=== PATIENT | male | born 1985 | race Caucasian/White ===

== ENCOUNTER 2017-01-03 23:23 | Emergency (ER) | payer OTHER ==
[~2017-01-03] VITALS: Ht 182.9 cm; Wt 80.7 kg
--- NOTE | ~2017-01-03 | CR230 ---
[facility] A Service of [facility] RADIOLOGY TEXT RESULTS PATIENT: HOLLIE PEREZ LOCATION: SED : 85 UNIT #: [id number] AGE: [address]: Campbell Gaxiola MD SEX: M ORDER DR: [id number] [place] [id number] E MR#: [id number] Acc #: [id number] NAME: HOLLIE PEREZ : 1985 SEX: M STUDY DATE/TIME: 01/03/2017 23:51 UNIT: SED ROOM: STUDY DESCRIPTION: CR Shoulder Min 2 View Rt Attending Physician: Campbell Gaxiola M.D. Ordering Physician: Campbell Gaxiola M.D. Primary Care Physician: Ambar Perez M.D. MEDICAL IMAGING REPORT This report is preliminary unless electronic signature is present. EXAM Right shoulder 01/03 23:51 INDICATION Shoulder pain tonight after lifting heavy object. FINDINGS Three views of the right shoulder were obtained. There is no fracture or dislocation. There is no AC joint separation. IMPRESSION Negative right shoulder. Dictated by... Ford Webb Jr., M.D. THIS IS AN ELECTRONICALLY VERIFIED REPORT Ford Webb Jr., M.D. at 01/05/2017 12:51 AM FREDY/nadia TD: 01/04/2017 07:01 JOB #: [id number] MEDICAL IMAGING REPORT Page 1 of 1
[~2017-01-03 23:23] MED LIST: ADVIL200 M1 PO; ALBUTEROL17 GM INH; AMOX/CLAV PO; BACLOFEN10 MG PO; BENZONATATE PO; BREO ELLIPTA I1 EACH IH; CLEOCIN HCL300 M1 PO; FLEXERIL; LEXAPRO PO; NAPROSYN-EC500 MG PO; NEURONTIN250 MG/5 M; NEURONTIN300 MG PO; PREDNISONE PO; TYLENOL #3 PO; VIBRAMYCIN100 M1 PO; VISTARIL PO; ZANAFLEX4 M1 PO
[2017-01-03] MEDS ORDERED: NEURONTIN300 MG PO (23:31)
== END 2017-01-04 00:42 | disposition home or self-care (01) ==
LOC: SED 23:23
DX: S43.401A Unspecified sprain of right shoulder joint, initial encounter (principal); F31.9 Bipolar disorder, unspecified; Z88.5 Allergy status to narcotic agent; Z79.899 Other long term (current) drug therapy; X58.XXXA Exposure to other specified factors, initial encounter
CPT/HCPCS: 73030; 99283

== ENCOUNTER 2017-01-08 12:27 | Emergency (ER) | payer OTHER ==
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
[2017-01-08 13:26] LABS: URINE APPEARANCE CLEAR; URINE BILIRUBIN POS (NEG); URINE BLOOD TRACE-INTACT (NEG); URINE COLOR YELLOW; URINE GLUCOSE NEG (NORM); URINE KETONE TRACE (NEG); URINE LEUKOCYTE ESTERASE NEG (NEG); URINE NITRATE NEG (NEG); URINE PROTEIN 1+ (NEG); URINE SOURCE CLEAN CATCH; URINE SPECIFIC GRAVITY 1.025 (1.003-1.035); URINE UROBILINOGEN 0.2 MG/DL (NORM)
[2017-01-08 13:28] LABS: BASOPHIL# 0.1 X10e3 (0-0.3); BASOPHIL% 0.7 % (0-2.5); EOSINOPHIL# 0.3 X10e3 (0-0.7); EOSINOPHIL% 2.3 % (0.0-7.0); HEMATOCRIT 45.9 % (38.0-50.0); HEMOGLOBIN 15.3 gm/dL (13.0-16.0); LYMPHOCYTE# 2.5 X10e3 (1.0-3.5); LYMPHOCYTE% 20.3 % (17.0-45.0); MEAN CELL VOLUME 88.5 FL (83-96); MEAN CORPUSCULAR HEMOGLOBIN 29.5 PG (28-34); MEAN CORPUSCULAR HGB CONC 33.3 g/dL (30-36); MEAN PLATELET VOLUME 7.7 FL (6.5-11.5); MICRO INDICATED? YES; MONOCYTE# 1.5 X10e3 (0-1.0); MONOCYTE% 12.3 % (3.0-12.0); NEUTROPHIL# 7.9 X10e3 (1.5-7.1); NEUTROPHIL% 64.4 % (40-75); PLATELET COUNT 245 X10e3 (140-420); RED BLOOD COUNT 5.18 X10e (3.90-5.60); RED CELL DISTRIBUTION WIDTH 14.3 % (11.0-15.5); WHITE BLOOD COUNT 12.2 X10e3 (4.0-10.5)
[2017-01-08 13:29] LABS: DIFF IND NO
[2017-01-08 13:33] LABS: CULTURE INDICATED? NO; URINE AMORPHOUS SEDIMENT AMORP URATES; URINE BACTERIA NEG (NEG); URINE MUCUS PRESENT; URINE RBC 0-2 /[HPF] (0-2); URINE SQUAMOUS EPITHELIAL CELL FEW /[HPF]; URINE WBC 0-2 /[HPF] (0-5)
[2017-01-08 13:44] LABS: ALBUMIN SERUM 4.8 g/dL (3.5-5.0); BILIRUBIN, DIRECT 0.1 mg/dL (0.0-0.2); BILIRUBIN,INDIRECT 0.6 mg/dL (0.0-0.9); BILIRUBIN,TOTAL 0.7 mg/dL (0.2-2.0); CALCIUM SERUM 8.6 mg/dL (8.4-10.2); CREATININE SERUM 3.9 mg/dL (0.6-1.4); GLOM FILT RATE Estimated 19.3 mL/min (>60); POTASSIUM 3.7 mmol/L (3.5-5.1); PROTEIN TOTAL SERUM 7.9 g/dL (6.0-8.3)
== END 2017-01-08 18:56 | disposition home or self-care (01) ==
LOC: SED 12:27 → CEDOF 16:29 → SED 16:29 → CEDOF 18:56
PROVIDERS: Emergency Medicine
DX: S00.83XA Contusion of other part of head, initial encounter (principal); N19 Unspecified kidney failure; M62.82 Rhabdomyolysis; Y04.0XXA Assault by unarmed brawl or fight, initial encounter; Y92.410 Unspecified street and highway as the place of occurrence of the external cause; F17.200 Nicotine dependence, unspecified, uncomplicated
CPT/HCPCS: 36415; 70450; 70486; 71101; 72072; 72100; 72125; 74176; 80048; 80076; 81003; 82550; 85025; 96361; 96374; 96376; 99284; J2270

== ENCOUNTER 2017-01-11 12:05 | Emergency (ER) | payer OTHER ==
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
[2017-01-11 12:45] LABS: BASOPHIL% 0.6 % (0-2.5); EOSINOPHIL# 0.1 X10e3 (0-0.7); EOSINOPHIL% 1.6 % (0.0-7.0); HEMATOCRIT 43.5 % (38.0-50.0); HEMOGLOBIN 14.7 gm/dL (13.0-16.0); LYMPHOCYTE# 1.3 X10e3 (1.0-3.5); LYMPHOCYTE% 14.9 % (17.0-45.0); MEAN CELL VOLUME 88.4 FL (83-96); MEAN CORPUSCULAR HEMOGLOBIN 29.8 PG (28-34); MEAN CORPUSCULAR HGB CONC 33.7 g/dL (30-36); MEAN PLATELET VOLUME 7.7 FL (6.5-11.5); MONOCYTE# 0.5 X10e3 (0-1.0); MONOCYTE% 6.3 % (3.0-12.0); NEUTROPHIL# 6.5 X10e3 (1.5-7.1); NEUTROPHIL% 76.6 % (40-75); PLATELET COUNT 241 X10e3 (140-420); RED BLOOD COUNT 4.92 X10e (3.90-5.60); WHITE BLOOD COUNT 8.5 X10e3 (4.0-10.5)
[2017-01-11 12:53] LABS: DIFF IND NO
[2017-01-11 13:06] LABS: ALBUMIN SERUM 4.3 g/dL (3.5-5.0); BILIRUBIN, DIRECT 0.1 mg/dL (0.0-0.2); BILIRUBIN,INDIRECT 0.9 mg/dL (0.0-0.9); CALCIUM SERUM 8.6 mg/dL (8.4-10.2); CREATININE SERUM 0.8 mg/dL (0.6-1.4); GLOM FILT RATE Estimated 119.1 mL/min (>60); POTASSIUM 3.8 mmol/L (3.5-5.1); PROTEIN TOTAL SERUM 7.4 g/dL (6.0-8.3)
[2017-01-11 14:33] LABS: URINE SOURCE CLEAN CATCH
[2017-01-11 14:36] LABS: URINE APPEARANCE CLEAR; URINE BLOOD NEG (NEG); URINE COLOR YELLOW; URINE GLUCOSE NEG (NORM); URINE KETONE TRACE (NEG); URINE LEUKOCYTE ESTERASE NEG (NEG); URINE NITRATE NEG (NEG); URINE PROTEIN NEG (NEG)
[2017-01-11 14:38] LABS: MICRO INDICATED? NO; URINE BILIRUBIN NEG (NEG)
[2017-01-11 14:46] LABS: AMPHETAMINE NEG (NEG); BARBITURATES NEG (NEG); BENZODIAZEPINES POS (NEG); COCAINE NEG (NEG); MARIJUANA POS (NEG); OPIATES POS (NEG); TRICYCLIC ANTIDEPRESSANTS NEG (NEG); U METHADONE NEG (NEG)
== END 2017-01-11 16:50 | disposition home or self-care (01) ==
LOC: SED 12:05
PROVIDERS: Emergency Medicine
DX: S06.0X9A Concussion with loss of consciousness of unspecified duration, initial encounter (principal); S05.10XA Contusion of eyeball and orbital tissues, unspecified eye, initial encounter; S93.401A Sprain of unspecified ligament of right ankle, initial encounter; F17.210 Nicotine dependence, cigarettes, uncomplicated; Z88.5 Allergy status to narcotic agent; Z79.899 Other long term (current) drug therapy; Y09 Assault by unspecified means
CPT/HCPCS: 73610; 80048; 80076; 80307; 81003; 82550; 85025; 99283